=== PATIENT | male | born 1980 | race African-American/Black ===

== ENCOUNTER 2024-01-06 19:33 | Emergency (ER) | payer MEDICAID ==
[~2024-01-06] VITALS: Ht 182.9 cm; Wt 70.0 kg
[2024-01-06 19:49] VITALS: BP 126/83; PULSE 64; RESP 16; TEMP 98.2; O2SAT 100
[2024-01-06] MEDS ORDERED: ACET-2708 MT (22:43)
== END 2024-01-06 23:12 | disposition home or self-care (01) ==
LOC: ER 19:45
DX: S63.501A Unspecified sprain of right wrist, initial encounter (principal); S90.01XA Contusion of right ankle, initial encounter; J45.909 Unspecified asthma, uncomplicated; V98.8XXA Other specified transport accidents, initial encounter; Y93.89 Activity, other specified; Y92.89 Other specified places as the place of occurrence of the external cause; Y99.8 Other external cause status
CPT/HCPCS: 73110; 73610; 99284